=== PATIENT | male | born 1985 | race African-American/Black ===

== ENCOUNTER → 2024-07-05 11:58 | Outpatient (REF) | payer BC, SELFPAY ==
[2024-07-05 15:56] LABS: % Basophils 0.8 % (0-2); % Immature Granulocytes 0.3 % (0-0.5); % Monocytes 8.3 % (1.7-9.3); % Neutrophils 52.6 % (42.2-75.2); Absolute Lymphocytes 1.5 10^3/uL (1.2-3.4); Absolute Monocytes 0.3 10^3/uL (0.1-0.6); Hematocrit 43.4 % (39.0-52.0); Hemoglobin 14.6 g/dL (13.0-18.0); Mean Corp Hgb Conc. 33.6 g/dL (33.0-37.0); Mean Corpuscular Hgb 26.7 pg (27.0-31.0); Mean Corpuscular Volume 79.5 fL (80.0-94.0); Mean Platelet Volume 9.3 fL (7.4-10.4); Nucleated Red Blood Cells % 0 % (-); Platelet Count 275 10^3/uL (130-400); Red Blood Cell Count 5.46 10^6/uL (4.70-6.10); Red Cell Dist. Width 12.7 % (11.5-14.5); White Blood Cell Count 3.9 10^3/uL (4.8-10.8)
[2024-07-05 16:06] LABS: ALT (SGPT) 53 U/L (0-50); AST (SGOT) 33 U/L (17-59); Albumin 4.8 g/dl (3.5-5.0); Alkaline Phosphatase 70 U/L (38-126); Blood Urea Nitrogen 16 mg/dl (9-20); Calcium 9.6 mg/dl (8.4-10.2); Carbon Dioxide 29 mmol/L (22-30); Chloride 102 mmol/L (98-107); Glucose 86 mg/dl (70-99); HDL Cholesterol 55 mg/dl; LDL Cholesterol, Calculated 193 mg/dl; Potassium 4.4 mmol/L (3.5-5.1); Sodium 140 mmol/L (135-145); Total Bilirubin 1.2 mg/dl (0.2-1.3); Total Cholesterol 264 mg/dl (50-199); Total Protein 7.4 g/dl (6.3-8.2); Triglyceride 82 mg/dl (10-149); Very Low Density Lipoprotein 16 mg/dl (0-30); eGFR > 60.00
[2024-07-05 16:14] LABS: Microalbumin, Random Urine 0.7 mg/dl (0.6-1.7)
[2024-07-05 16:15] LABS: Microalbumin/creatinine Ratio 2.7 mg/g
[2024-07-05 16:41] LABS: TSH Reflex To Free T4 1.02 uIU/ml (0.47-4.68)
[2024-07-06 08:54] LABS: Glycohemoglobin (HgbA1c) 5.7 % (4.0-5.6)
[2024-07-07 21:33] LABS: PSA Total 0.6 ng/mL (0.0-4.0)
== END ==
LOC: HWRAD 11:58
PROVIDERS: ATTENDING PHYSICIAN Nurse Practitioner Family
DX: R39.198 Other difficulties with micturition (principal); Z00.00 Encounter for general adult medical examination without abnormal findings; M54.50 Low back pain, unspecified; M54.2 Cervicalgia; F32.9 Major depressive disorder, single episode, unspecified; R73.03 Prediabetes; R94.4 Abnormal results of kidney function studies; R51.9 Headache, unspecified; R03.0 Elevated blood-pressure reading, without diagnosis of hypertension; E78.5 Hyperlipidemia, unspecified; M25.561 Pain in right knee; M79.642 Pain in left hand
CPT/HCPCS: 36415; 72050; 72110; 73130; 73564; 80053; 80061; 82043; 82570; 83036; 84153; 84154; 84443; 85025

== ENCOUNTER → 2024-10-05 10:14 | Outpatient (REF) | payer BC, SELFPAY ==
[2024-10-05 15:48] LABS: ALT (SGPT) 126 U/L (0-50); AST (SGOT) 50 U/L (17-59); Albumin 4.9 g/dl (3.5-5.0); Alkaline Phosphatase 57 U/L (38-126); HDL Cholesterol 57 mg/dl; LDL Cholesterol, Calculated 114 mg/dl; Total Protein 7.7 g/dl (6.3-8.2); Very Low Density Lipoprotein 16 mg/dl (0-30)
[2024-10-05 18:25] LABS: Hepatitis B Surface Antigen Negative (Negative)
[2024-10-05 18:43] LABS: Hepatitis C Antibody Negative (Negative)
== END ==
LOC: HWLAB 10:14
PROVIDERS: ATTENDING PHYSICIAN Nurse Practitioner Family
DX: Z00.00 Encounter for general adult medical examination without abnormal findings (principal); R73.03 Prediabetes; F43.10 Post-traumatic stress disorder, unspecified; Z13.31 Encounter for screening for depression; R94.5 Abnormal results of liver function studies; M54.50 Low back pain, unspecified; M54.2 Cervicalgia; F32.9 Major depressive disorder, single episode, unspecified; R94.4 Abnormal results of kidney function studies; R51.9 Headache, unspecified; R03.0 Elevated blood-pressure reading, without diagnosis of hypertension; E78.5 Hyperlipidemia, unspecified; M79.642 Pain in left hand; M25.561 Pain in right knee; R39.198 Other difficulties with micturition
CPT/HCPCS: 36415; 80061; 80076; 86706; 86803; 87340